=== PATIENT | female | born 1995 | race African-American/Black ===

== ENCOUNTER 2017-03-19 16:58 | Emergency (ER) | payer OTHER ==
[~2017-03-19] VITALS: Ht 152.4 cm; Wt 65.8 kg
[~2017-03-19 16:58] MED LIST: AMIODARONE HCL200 MG PO; ASPIR 8181 MG PO; CEPHALEXIN500 MG PO; COREG12.5 MG PO; FISH OIL1 CAP PO; LISINOPRIL10 MG PO; LORAZEPAM0.5 MG PO; THEOPHYLLINE300 M1 PO; TRAMADOL HCL50 MG PO
[2017-03-19 18:40] LABS: BASOPHIL % 1.4 % (0-2); PLATELET COUNT 301 x10^3mcL (130-400)
[2017-03-19 18:42] LABS: RED CELL DISTRIBUTION WIDTH 15.7 % (11.5-14.5)
[2017-03-19 18:49] LABS: ALBUMIN 4.3 g/dL (3.4-5.0); ALKALINE PHOSPHATASE 62 U/L (46-116); ALT/SGPT 22 U/L (14-59); AST/SGOT 15 U/L (15-37); BILIRUBIN TOTAL 0.7 mg/dL (0.20-1.00); CARBON DIOXIDE 26.2 mmol/L (21-32); CHLORIDE SERUM 99 mmol/L (98-107); CREATININE SERUM 0.8 mg/dL (0.6-1.0); GFR1 > 60 mL/min; GLUCOSE SERUM 84 mg/dL (74-106); LIPASE 152 IU/L (73-393); POTASSIUM SERUM 3.3 mmol/L (3.5-5.1); SODIUM SERUM 138 mmol/L (136-145); TOTAL PROTEIN, SERUM 8.1 g/dL (6.4-8.2); rbc morphology (normal/abnorm) ABNORMAL (NORMAL)
[2017-03-19 18:59] LABS: CALCIUM 9.5 mg/dL (8.5-10.1)
[2017-03-19 20:44] VITALS: BP 112/77
== END 2017-03-19 20:44 | disposition home or self-care (01) ==
LOC: ED 16:58
PROVIDERS: Emergency Medicine
DX: R19.7 Diarrhea, unspecified (principal); E87.6 Hypokalemia; R11.10 Vomiting, unspecified; Z79.899 Other long term (current) drug therapy
CPT/HCPCS: J1200; J1885; J2405; J2765; J7030

== ENCOUNTER 2017-07-19 17:56 | Emergency (ER) | payer OTHER ==
[2017-07-19 21:17] VITALS: BP 104/58
== END 2017-07-19 21:17 | disposition home or self-care (01) ==
LOC: ED 17:56
DX: J03.90 Acute tonsillitis, unspecified (principal)
CPT/HCPCS: J0696; J7512

== ENCOUNTER 2017-10-24 20:22 | Emergency (ER) | payer OTHER ==
[2017-10-24 21:06] LABS: BASOPHIL % 0.1 % (0-2); PLATELET COUNT 387 x10^3mcL (130-400)
[2017-10-24 21:09] LABS: RED CELL DISTRIBUTION WIDTH 15.5 % (11.5-14.5)
[2017-10-24 21:11] LABS: CALCIUM 10.4 mg/dL (8.5-10.1); CARBON DIOXIDE 28.8 mmol/L (21-32); CHLORIDE SERUM 99 mmol/L (98-107); CREATININE SERUM 0.8 mg/dL (0.6-1.0); GFR1 > 60 mL/min; GLUCOSE SERUM 96 mg/dL (74-106); POTASSIUM SERUM 3.3 mmol/L (3.5-5.1); SODIUM SERUM 137 mmol/L (136-145)
[2017-10-24 21:11] LABS: UA SPECIFIC GRAVITY >=1.030 (1.005-1.035); microscopic required? YES; urine erythrocyte TRACE (NEGATIVE)
[2017-10-24 21:16] LABS: ALBUMIN 4.7 g/dL (3.4-5.0); ALKALINE PHOSPHATASE 59 U/L (46-116); ALT/SGPT 18 U/L (14-59); AMYLASE 84 U/L (25-115); AST/SGOT 14 U/L (15-37); BILIRUBIN TOTAL 0.63 mg/dL (0.20-1.00); LIPASE 108 IU/L (73-393)
[2017-10-24 21:33] LABS: AMPHETAMINE QUAL UR NONE DETECTED (NEG <=1000)
[2017-10-25 00:39] VITALS: BP 123/45
== END 2017-10-25 00:40 | disposition home or self-care (01) ==
LOC: ED 20:22
PROVIDERS: Emergency Medicine
DX: R11.2 Nausea with vomiting, unspecified (principal); R19.7 Diarrhea, unspecified; E87.6 Hypokalemia; N39.0 Urinary tract infection, site not specified; F12.90 Cannabis use, unspecified, uncomplicated
CPT/HCPCS: 83880; J0696; J1630; J2060; J2405; J3490; J7030

== ENCOUNTER 2018-03-15 08:47 | Emergency (ER) | payer OTHER ==
[~2018-03-15] VITALS: Ht 170.2 cm; Wt 61.2 kg
[2018-03-15 08:54] VITALS: Ht 170.2 cm; Wt 61.2 kg
[2018-03-15 10:05] VITALS: BP 125/75
== END 2018-03-15 10:05 | disposition home or self-care (01) ==
LOC: ED 08:47
DX: S93.401A Sprain of unspecified ligament of right ankle, initial encounter (principal); Z88.5 Allergy status to narcotic agent; X50.1XXA Overexertion from prolonged static or awkward postures, initial encounter; Y93.89 Activity, other specified; Y92.89 Other specified places as the place of occurrence of the external cause; Y99.8 Other external cause status

== ENCOUNTER 2018-06-02 08:22 | Emergency (ER) | payer OTHER ==
[~2018-06-02] VITALS: Ht 170.2 cm; Wt 49.4 kg
[2018-06-02 09:40] LABS: BASOPHIL % 0.5 % (0-2); PLATELET COUNT 257 x10^3mcL (130-400); RED CELL DISTRIBUTION WIDTH 15.9 % (11.5-14.5)
[2018-06-02 09:48] LABS: ALBUMIN 4.7 g/dL (3.4-5.0); ALKALINE PHOSPHATASE 93 U/L (46-116); ALT/SGPT 17 U/L (14-59); AMYLASE 68 U/L (25-115); AST/SGOT 16 U/L (15-37); BILIRUBIN TOTAL 0.5 mg/dL (0.20-1.00); CALCIUM 9.2 mg/dL (8.5-10.1); CARBON DIOXIDE 20.9 mmol/L (21-32); CHLORIDE SERUM 103 mmol/L (98-107); CREATININE SERUM 0.9 mg/dL (0.6-1.0); GFR1 > 60 mL/min; GLUCOSE SERUM 159 mg/dL (74-106); LIPASE 136 IU/L (73-393); SODIUM SERUM 141 mmol/L (136-145)
[2018-06-02 09:50] LABS: POTASSIUM SERUM 2.6 mmol/L (3.5-5.1); TOTAL PROTEIN, SERUM 8.3 g/dL (6.4-8.2)
[2018-06-02 13:09] VITALS: BP 105/64
== END 2018-06-02 13:10 | disposition home or self-care (01) ==
LOC: ED 08:22
PROVIDERS: Emergency Medicine
DX: E87.6 Hypokalemia (principal); F12.20 Cannabis dependence, uncomplicated; Z88.5 Allergy status to narcotic agent; Z88.8 Allergy status to other drugs, medicaments and biological substances
CPT/HCPCS: J1630; J2060; J3480

== ENCOUNTER 2018-06-03 22:00 | Emergency (ER) | payer OTHER ==
[~2018-06-03] VITALS: Ht 165.1 cm; Wt 50.8 kg
[2018-06-03 22:04] VITALS: Ht 165.1 cm; Wt 50.8 kg
[2018-06-03 22:48] LABS: BASOPHIL % 1.1 % (0-2); PLATELET COUNT 208 x10^3mcL (130-400); RED CELL DISTRIBUTION WIDTH 16.3 % (11.5-14.5)
[2018-06-03 23:09] LABS: ALBUMIN 4.2 g/dL (3.4-5.0); ALKALINE PHOSPHATASE 80 U/L (46-116); ALT/SGPT 17 U/L (14-59); AMYLASE 104 U/L (25-115); AST/SGOT 15 U/L (15-37); BILIRUBIN TOTAL 0.6 mg/dL (0.20-1.00); CALCIUM 8.3 mg/dL (8.5-10.1); CHLORIDE SERUM 106 mmol/L (98-107); CREATININE SERUM 0.7 mg/dL (0.6-1.0); GFR1 > 60 mL/min; GLUCOSE SERUM 96 mg/dL (74-106); LIPASE 598 IU/L (73-393); SODIUM SERUM 145 mmol/L (136-145); TOTAL PROTEIN, SERUM 7.3 g/dL (6.4-8.2)
[2018-06-03 23:13] LABS: POTASSIUM SERUM 2.8 mmol/L (3.5-5.1)
[2018-06-04 02:49] VITALS: BP 124/70
== END 2018-06-04 02:49 | disposition home or self-care (01) ==
LOC: ED 22:00
PROVIDERS: Emergency Medicine
DX: K85.20 Alcohol induced acute pancreatitis without necrosis or infection (principal); E87.6 Hypokalemia; Z88.5 Allergy status to narcotic agent
CPT/HCPCS: 83880; C9113; J2060; J2765; J3480; J3490; J7030; J7050

== ENCOUNTER 2018-11-22 14:30 | Emergency (ER) | payer MEDICAID ==
[~2018-11-22] VITALS: Ht 167.6 cm; Wt 56.0 kg
[2018-11-22 14:57] VITALS: Ht 167.6 cm; Wt 56.0 kg
[2018-11-22 17:11] LABS: BASOPHIL % 0.5 % (0-2); PLATELET COUNT 280 x10^3mcL (130-400); RED CELL DISTRIBUTION WIDTH 14.2 % (11.5-14.5)
[2018-11-22 17:25] LABS: CALCIUM 9.1 mg/dL (8.5-10.1); CARBON DIOXIDE 19.7 mmol/L (21-32); CHLORIDE SERUM 98 mmol/L (98-107); CREATININE SERUM 0.8 mg/dL (0.6-1.0); GFR1 > 60 mL/min; GLUCOSE SERUM 70 mg/dL (74-106); POTASSIUM SERUM 3.4 mmol/L (3.5-5.1); SODIUM SERUM 133 mmol/L (136-145)
[2018-11-22 17:34] VITALS: BP 134/92
[2018-11-22 17:36] LABS: ALBUMIN 4.2 g/dL (3.4-5.0); ALKALINE PHOSPHATASE 55 U/L (46-116); ALT/SGPT 16 U/L (14-59); AST/SGOT 11 U/L (15-37); BILIRUBIN TOTAL 0.8 mg/dL (0.20-1.00); LIPASE 127 IU/L (73-393)
== END 2018-11-22 18:06 | disposition home or self-care (01) ==
LOC: ED 14:30
PROVIDERS: Emergency Medicine
DX: K29.70 Gastritis, unspecified, without bleeding (principal); Z88.5 Allergy status to narcotic agent
CPT/HCPCS: J2765; J3490; J7030

== ENCOUNTER 2020-03-05 08:49 | Emergency (ER) | payer SELFPAY ==
[~2020-03-05] VITALS: Ht 165.1 cm; Wt 57.6 kg
[2020-03-05 08:58] VITALS: Ht 165.1 cm; Wt 57.6 kg
[2020-03-05 09:33] VITALS: BP 117/56
[2020-03-05 09:46] LABS: BASOPHIL % 0.4 % (0-2); PLATELET COUNT 319 x10^3mcL (130-400); RED CELL DISTRIBUTION WIDTH 12.7 % (11.5-14.5)
[2020-03-05 10:02] LABS: UA SPECIFIC GRAVITY >=1.030 (1.005-1.035); microscopic required? YES; urine erythrocyte 1+ (NEGATIVE)
[2020-03-05 10:06] LABS: ALBUMIN 4.3 g/dL (3.4-5.0); ALKALINE PHOSPHATASE 77 U/L (46-116); ALT/SGPT 18 U/L (14-59); AMYLASE 79 U/L (25-115); AST/SGOT 16 U/L (15-37); BILIRUBIN TOTAL 0.5 mg/dL (0.20-1.00); CARBON DIOXIDE 21.4 mmol/L (21-32); CHLORIDE SERUM 101 mmol/L (98-107); GFR1 > 60 mL/min; GLUCOSE SERUM 176 mg/dL (74-106); LIPASE 112 IU/L (73-393); POTASSIUM SERUM 3.2 mmol/L (3.5-5.1); SODIUM SERUM 141 mmol/L (136-145); TOTAL PROTEIN, SERUM 8.1 g/dL (6.4-8.2)
[2020-03-05 10:13] LABS: CALCIUM 10.1 mg/dL (8.5-10.1)
== END 2020-03-05 10:06 | disposition left against medical advice (07) ==
LOC: ED 08:49
PROVIDERS: Emergency Medicine
DX: R10.13 Epigastric pain (principal); G89.29 Other chronic pain; Z88.5 Allergy status to narcotic agent; Z88.6 Allergy status to analgesic agent
CPT/HCPCS: J0780; J1885